=== PATIENT | female | born 2000 ===

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

== ENCOUNTER 2018-02-26 20:58 | Emergency (ER) | payer BC ==
[2018-02-26 21:10] VITALS: BP 107/68; PULSE 76; RESP 14; TEMP 97.7; O2SAT 98
--- NOTE | 2018-02-26 21:57 | C.PDOC ---
History Of Present Illness 18 year old female presents to the ER with a complaint of feeling tired and dizziness described as a room spinning sensation that began 3 days ago. Patient states she had a implanon placed in her left arm on 02/18/18 and was advised to take time off from work but did not. Patient was seen by PMD and had blood work drawn today. Denies headache, nausea, or vomiting. Time Seen by Provider: 02/26/18 21:30 Chief Complaint (Nursing): Dizziness/Lightheaded History Per: Patient History/Exam Limitations: no limitations Onset/Duration Of Symptoms: Days Current Symptoms Are (Timing): Still Present Seizure Or Post-ictal Symptoms: None Possible Causative Factor(s): Other (Implanon) Fall Associated With With Symptoms: No Recent travel outside of the [place]: No Past Medical History Reviewed: Historical Data, Nursing Documentation, Vital Signs Vital Signs: Last Vital Signs Temp 97.7 F 02/26/18 21:08 Pulse 76 02/26/18 21:08 Resp 14 02/26/18 21:08 BP 107/68 02/26/18 21:08 Pulse Ox 98 02/26/18 22:52 Family History: States: Unknown Family Hx - Social History Hx Alcohol Use: No Hx Substance Use: No - Immunization History Hx Tetanus Toxoid Vaccination: No Hx Influenza Vaccination: No Hx Pneumococcal Vaccination: No Review Of Systems Constitutional: Positive for: Other (Tired). Negative for: Fever, Chills Respiratory: Negative for: Shortness of Breath Gastrointestinal: Negative for: Nausea, Vomiting Musculoskeletal: Negative for: Neck Pain Neurological: Positive for: Dizziness. Negative for: Weakness, Numbness Physical Exam - Physical Exam Appears: Non-toxic Skin: Warm, Dry Head: Atraumatic, Normacephalic Eye(s): bilateral: Normal Inspection, PERRL, EOMI Oral Mucosa: Moist Neck: Normal, No Midline Cervical Tenderness, No Paracervical Tenderness, Supple Chest: Symmetrical, No Ecchymosis Cardiovascular: Rhythm Regular Respiratory: Normal Breath Sounds, No Rales, No Rhonchi, No Wheezing Gastrointestinal/Abdominal: Soft, No Tenderness Back: No Vertebral Tenderness, No Paraspinal Tenderness Extremity: Normal ROM (x4), Capillary Refill (<2 seconds), Other (Small area of ecchymosis to left arm) Pulses: Left Radial: Normal, Right Radial: Normal Neurological/Psych: Oriented x3, Normal Speech ED Course And Treatment O2 Sat by Pulse Oximetry: 98 (Room air) Pulse Ox Interpretation: Normal Progress Note: Patient is resting comfortably in the ER in no acute distress, vitals are stable, patient offered repeat labs but refused, advised to follow up with CLIENT SERVER PROGRAMMER and PMD for lab results or return if symptoms worsen. Disposition Counseled Patient/Family Regarding: Diagnosis, Need For Followup - Disposition Referrals: Brayden Denson MD [IM] - Disposition: HOME/ ROUTINE Disposition Time: 22:47 Condition: STABLE Additional Instructions: Please keep yourself hydrated Take meds as directed Keep appointment with PMD on saturday Return to ER if symptoms worsen Prescriptions: Meclizine HCl 25 mg PO TID PRN #10 tablet PRN Reason: Dizziness Instructions: Vertigo (a Type of Dizziness) (DC) Forms: [employer] (Latvian), Work Excuse Print Language: TANZANIAN - Clinical Impression Clinical Impression: Vertigo - 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 - Scribe Statement The provider has reviewed the documentation as recorded by the Scribe Shahram Lovett All medical record entries made by the Leonelibconstantino were at my direction and personally dictated by me. I have reviewed the chart and agree that the record accurately reflects my personal performance of the history, physical exam, medical decision making, and the department course for this patient. I have also personally directed, reviewed, and agree with the discharge instructions and disposition.
--- NOTE | 2018-02-27 19:26 | CARD ---
APPROVED REPORT Date of service: 02/26/2018 EKG Measurement Heart [id number] 120P35 [id number] <Conclusion> Normal sinus rhythm Normal ECG
== END 2018-02-26 23:01 | disposition home or self-care (01) ==
LOC: C.ER 20:58
DX: R42 Dizziness and giddiness (principal)